=== PATIENT | female | born 1970 | race Caucasian/White ===

== ENCOUNTER → 2021-03-27 | Outpatient (CLI) | payer OTHER ==
[~2021-03-27] MED LIST: LIDODERM 5%1 PATC1 TRANSDERM; NORCO 5-325 TA1 EACH PO
== END ==
LOC: BC 12:59
PROVIDERS: ATTEND Neuromusculoskeletal Medicine & OMM
DX: N63.20 Unspecified lump in the left breast, unspecified quadrant (principal)

== ENCOUNTER 2021-11-08 09:54 | Emergency (ER) | payer OTHER ==
[~2021-11-08] VITALS: Ht 177.8 cm; Wt 68.0 kg
[2021-11-08] MEDS ORDERED: LEXAPRO 10 MG T10 M2 PO (10:33)
[2021-11-08] MEDS ORDERED: FLEXERIL PO (10:33)
[2021-11-08 10:43] LABS: BASOPHILS 0.5 % (0.0-2.0); EOSINOPHILS 1.9 % (0.0-3.0); HEMOGLOBIN 12.9 gm/dL (12.0-15.0); LYMPHOCYTES 22.6 % (24.0-44.0); MCH 31.2 pg (26.0-34.0); MCHC 34.9 g/dL (28.0-37.0); MCV 89.4 fL (80.0-100.0); MONOCYTES 9.6 % (1.0-8.0); PLATELET COUNT 446 thou/uL (150-400); POLYS 65.4 % (36.0-66.0); RBC 4.14 mil/uL (4.20-5.00); RDW 12.8 % (10.5-14.5); WBC 7.6 thou/uL (4.0-11.0)
[2021-11-08 10:43] LABS: URINE BILIRUBIN NEGATIVE (Negative); URINE BLOOD 2+ (Negative); URINE CLARITY CLEAR; URINE COLOR YELLOW; URINE GLUCOSE-RANDOM* NEGATIVE (Negative); URINE KETONES NEGATIVE (Negative); URINE NITRITE-REFLEX NEGATIVE (Negative); URINE PROTEIN (DIPSTICK) TRACE (Negative); URINE SPECIFIC GRAVITY >= 1.030 (1.005-1.035); URINE UROBILINOGEN 0.2 E.U./dl (0.2-1.0)
[2021-11-08 10:51] LABS: URINE LEUKOCYTES-REFLEX 1+ (Negative)
[2021-11-08 10:53] LABS: CALCIUM 9.2 mg/dL (8.5-10.1); CREATININE 0.6 mg/dL (0.6-1.0); POTASSIUM 3.7 mmol/L (3.5-5.1)
[2021-11-08 10:57] LABS: SQUAMOUS 4-10 Moderate /LPF (0-3)
[2021-11-08 10:59] LABS: ALBUMIN 3.5 g/dL (3.4-5.0); TOTAL BILIRUBIN 0.5 mg/dL (0.2-1.0); TOTAL PROTEIN 7.4 g/dL (6.4-8.2)
[2021-11-08 10:59] LABS: CASTS None Seen /LPF (None Seen); CRYSTALS None Seen /LPF (None Seen); URINE RBC 3-10 Few /HPF (NONE SEEN); URINE WBC-REFLEX 6-15 Few /HPF (0-5)
[2021-11-08] MEDS ORDERED: CEPHALEXIN500 MG PO (12:40)
[2021-11-08] MEDS ORDERED: HYDROCODON-ACE1 EAC7 PO (12:40)
[2021-11-08] MEDS ORDERED: ZOFRAN ODT4 MG PO (12:40)
[2021-11-08] MEDS ORDERED: DOXYCYCLINE 10100 MG PO (12:40)
[2021-11-08 13:22] VITALS: BP 117/76
== END 2021-11-08 13:23 | disposition home or self-care (01) ==
LOC: ER 09:54
PROVIDERS: Emergency Medicine
DX: N64.4 Mastodynia (principal); R06.00 Dyspnea, unspecified; R50.9 Fever, unspecified; N39.0 Urinary tract infection, site not specified; Z79.899 Other long term (current) drug therapy